=== PATIENT | male | born 1970 | race American Indian/Alaskan Native ===

== ENCOUNTER 2019-01-07 17:22 | Emergency (ER) | payer OTHER ==
[2019-01-07] MEDS ORDERED: THERMAZENE 50 GRAM TP ONE (17:52)
[2019-01-07] MEDS ORDERED: TRIPLE ANTIBIOTIC TP ONE (17:52)
[2019-01-07] MEDS ORDERED: IBUPROFEN PO ONE (17:52)
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
[2019-01-07 17:57] VITALS: BP 142/99
[2019-01-07] MEDS ORDERED: BOOSTRIX IM ONE (17:58)
== END 2019-01-07 18:09 | disposition home or self-care (01) ==
LOC: ED 17:22
DX: T20.09XA Burn of unspecified degree of multiple sites of head, face, and neck, initial encounter (principal); T22.012A Burn of unspecified degree of left forearm, initial encounter; Z90.49 Acquired absence of other specified parts of digestive tract; X08.8XXA Exposure to other specified smoke, fire and flames, initial encounter; Y93.89 Activity, other specified; Y92.89 Other specified places as the place of occurrence of the external cause; Y99.8 Other external cause status
CPT/HCPCS: 90471; 90715; A6250